=== PATIENT | female | born 1960 | race Caucasian/White ===

== ENCOUNTER → 2020-12-24 02:48 | Outpatient (CLI) | payer OTHER, SELFPAY ==
[2020-12-24 17:36] LABS: SARS-CoV-2 RNA PCR Negative
== END ==
PROVIDERS: PCP Family Medicine; Visit Provider Family Medicine
DX: R05.9 Cough, unspecified (principal); Z20.822 Contact with and (suspected) exposure to COVID-19
CPT/HCPCS: C9803; U0003; U0005

== ENCOUNTER 2023-02-14 01:52 | Day surgery (SDC) | payer OTHER, SELFPAY ==
[2022-12-21 14:04] VITALS: BMI 32.0
--- NOTE | 2023-01-27 12:41 | PC.NURSE ---
Pt denies any changes to home medications or health history since previous PAT call completed. Updated date/times reviewed.
--- NOTE | 2023-02-11 09:22 | SUR.PREOP ---
Patient called regarding upcoming procedure. Reviewed preop instructions, appointment times, and procedure prep.
[2023-02-14 06:43] VITALS: BP 138/77; PULSE 117; RESP 20; TEMP 36; O2SAT 100; BMI 32.1
[2023-02-14] MEDS: LACTATED RINGERS 1,000 ML 150 ML IV CONT (07:05)
--- NOTE | 2023-02-14 07:27 | WPDANESEPPF ---
Anes - Initial Pre Proc Eval Procedure: Operation Date: 02/14/23 08:00 Proposed Procedures p Esophagogastroduodenoscopy & Screening Colonoscopy - Schuyler Brooks MD Date/Time: 02/14/23 07:27 Surgeon: Schuyler Brooks MD Pre Op Diagnosis: neoplasm screening,Esophageal Obstruction Patient Data Age: 62 Gender: F Height: 1.6 m Weight: 82.3 kg Last Vital Signs Temp 36.0 C L 02/14/23 06:43 Pulse 117 H 02/14/23 06:43 Resp 20 02/14/23 06:43 BP 138/77 02/14/23 06:43 Pulse Ox 100 02/14/23 06:43 O2 Del Method Room Air 02/14/23 06:43 Allergies Allergy/AdvReac Type Severity Reaction Status Date / Time atorvastatin Allergy Unknown Other Verified 02/14/23 06:53 codeine Allergy Unknown Nausea and Verified 02/14/23 06:53 Vomiting Penicillins Allergy Unknown Rash Verified 02/14/23 06:53 pitavastatin [From Livalo] Allergy Unknown Verified 02/14/23 06:53 Home Medications Medication Instructions Recorded Confirmed Type alprazolam 1 mg tablet 2 mg PO HS 12/21/22 02/14/23 History amitriptyline 25 mg tablet 50 mg PO HS 12/21/22 02/14/23 History metoprolol succinate 100 mg 100 mg PO DAILY 12/21/22 02/14/23 History tablet,extended release 24 hr Patient hx anesthesia problems: none Family hx anesthesia problems: none Results Review: All pre-operative results and documents have been reviewed as part of the pre-operative evaluation. [facility] Family History Family History Other Family history of coronary artery disease Social History Social History Smoking status: Current every day smoker Tobacco type: cigarettes Second hand tobacco smoke exposure: Yes Alcohol intake: never Substance use: current Substance use type: marijuana Last use: 12/06/22 Living arrangements: with family Spiritual care concerns: No Anes - Eval Final PreProcedure Day of Procedure 02/14/23 07:27 Patient weight: obese Heart: regular rate and rhythm Lungs: decreased breath sounds Airway: Mallampati scale class II Neurological: alert and oriented Last oral intake: >/= 8 hours ASA classification: III Emergent: no Anesthetic plan: proceed Anesthesia type and monitoring: general GIVS and standard monitoring Results Review: All pre-operative results and documents have been reviewed as part of the pre-operative evaluation. Informed Consent: The patient's anesthetic plan and its attendant risks and benefits were discussed with the patient/family/POA. Questions were solicited and answers provided to the satisfaction of the patient/family/POA.
[2023-02-14] MEDS: MIDAZOLAM HCL (*CRX) 2 MG/2 ML VIAL IV PUSH (07:36)
--- NOTE | 2023-02-14 07:51 | PM.HPGS ---
History of Present Illness History of Present Illness Consent: Risks, benefits, and alternatives have been discussed and questions answered. Patient agrees to proceed with procedure. Chief complaint: neoplasm screening,Esophageal Obstruction Narrative: Virgen Wyatt is a 62 year old female with intermittent dysphagia for few years, also needs first screening colonoscopy Review of Systems Constitutional: Constitutional: Denies headache(s) and Denies weakness Eyes: Eyes: Denies blurry vision ENT: Reports Normal hearing present, Denies headache(s) and Denies neck pain Cardiovascular: Cardiovascular: Denies chest pain and Denies dyspnea Respiratory: Respiratory: Denies dyspnea Gastrointestinal: Gastrointestinal: Reports no additional gastrointestinal complaints Genitourinary: Genitourinary: Denies dysuria Musculoskeletal: Musculoskeletal: Denies neck pain Integumentary/Breasts: Skin/Breast: Denies dry skin Neurologic: Reports Normal hearing present, Denies headache(s) and Denies weakness Psychiatric: Psychiatric: Denies anxiety Endocrine: Endocrine: Denies change in body appearance Hematologic/Lymphatic: Hematologic/Lymphatic: Denies easy bleeding Allergic/Immunologic: Allergic/Immunologic: Denies urticaria PMF Past Medical History Medical History (Updated 02/14/23 @ 07:52 by Schuyler Brooks MD) Colon cancer screening Dysphagia Family History Family History Other Family history of coronary artery disease Social History Social History Smoking status: Current every day smoker Tobacco type: cigarettes Second hand tobacco smoke exposure: Yes Alcohol intake: never Substance use: current Substance use type: marijuana Last use: 12/06/22 Living arrangements: with family Spiritual care concerns: No Meds Home Medications and Allergies Home Medications Medication Instructions Recorded Confirmed Type alprazolam 1 mg tablet 2 mg PO HS 12/21/22 02/14/23 History amitriptyline 25 mg tablet 50 mg PO HS 12/21/22 02/14/23 History metoprolol succinate 100 mg 100 mg PO DAILY 12/21/22 02/14/23 History tablet,extended release 24 hr Allergies Allergy/AdvReac Type Severity Reaction Status Date / Time atorvastatin Allergy Unknown Other Verified 02/14/23 06:53 Penicillins Allergy Unknown Rash Verified 02/14/23 06:53 pitavastatin [From Livalo] Allergy Unknown Verified 02/14/23 06:53 codeine AdvReac Unknown Nausea and Verified 02/14/23 07:31 Vomiting Vital Signs Vital Signs - 24 hr 02/14/23 06:43 Temperature 96.8 F L Pulse Rate 117 H Respiratory Rate 20 Blood Pressure 138/77 Pulse Oximetry 100 Oxygen Delivery Room Air Exam Const: General: comfortable and no acute distress HENMT: Face/Nose/Sinus: Normal nares present Eyes: General: appearance normal, both eyes and all related structures Neck: Neck: no JVD Resp: Auscultation: clear to auscultation bilaterally Cardio: Rate: regular rate Rhythm: regular rhythm GI: Inspection: non-distended GI Palp: Yes Soft to palpation Skin: General skin exam: normal color Neuro: General: gait normal Speech: normal speech Extrem: General: normal to inspection Psych: Mental Status: mental status grossly normal Assessment and Plan Assessment and plan (1) Dysphagia: Code(s): R13.10 - Dysphagia, unspecified Status: Acute Assessment and Plan: egd with bx (2) Colon cancer screening: Code(s): Z12.11 - Encounter for screening for malignant neoplasm of colon Status: Acute Assessment and Plan: colonoscopy
--- NOTE | 2023-02-14 08:10 | SUR.OPER ---
EGD end at 0804. Colonoscopy start 08.
[2023-02-14 08:27] VITALS: BP 109/67; PULSE 89; RESP 28; O2SAT 99
[2023-02-14 08:37] VITALS: BP 107/67; PULSE 87; RESP 20; O2SAT 100
[2023-02-14 08:47] VITALS: BP 123/67; PULSE 86; RESP 21; O2SAT 100
== END 2023-02-14 08:51 | disposition home or self-care (01) ==
PROVIDERS: PCP Family Medicine; Referring Provider Hospitalist; Visit Provider Internal Medicine Gastroenterology
PROC: 0DJ08ZZ Inspection of Upper Intestinal Tract, Via Natural or Artificial Opening Endoscopic (ICD-10-PCS; CPT 43235; principal; 2023-02-14 08:00)
DX: Z12.11 Encounter for screening for malignant neoplasm of colon (principal); D12.3 Benign neoplasm of transverse colon; D12.4 Benign neoplasm of descending colon; K63.5 Polyp of colon; K64.8 Other hemorrhoids; K29.50 Unspecified chronic gastritis without bleeding; K21.00 Gastro-esophageal reflux disease with esophagitis, without bleeding; F17.210 Nicotine dependence, cigarettes, uncomplicated; F12.90 Cannabis use, unspecified, uncomplicated; E66.9 Obesity, unspecified; Z68.32 Body mass index [BMI] 32.0-32.9, adult
CPT/HCPCS: 45385; 43239; 43450; 88305; J2001; J2250; J2704; J7120